=== PATIENT | female | born 1935 | race Caucasian/White ===

== ENCOUNTER 2018-02-01 13:42 | Inpatient (IN) | payer MEDICARE, OTHER ==
[~2018-02-01] VITALS: Ht 149.9 cm; Wt 56.5 kg
[~2018-02-01 13:42] MED LIST: LEVO750T26 PO; NYST1000 PO
[2018-02-01] MEDS ORDERED: SODIUM CHLORIDE 0.9% 1,000 ML IV ONE (14:04)
[2018-02-01] MEDS ORDERED: ACETAMINOPHEN 650 MG SUPP ONE (14:05)
[2018-02-01] MEDS ORDERED: SODIUM CHLORIDE 0.9% 1,000ML IVBOLUS ONE (14:30)
[2018-02-01] MEDS ORDERED: ACETAMINOPHEN 650 MG SUPP PR ONE (14:30)
[2018-02-01] MEDS ORDERED: SODIUM CHLORIDE FLUSH 10ML SYR IVF ONE (14:30)
[2018-02-01 14:35] LABS: INTERNATIONAL NORMALIZED RATIO 1.02 (0.93-1.1); PROTHROMBIN TIME 10.6 Seconds (9.6-11.5)
[2018-02-01 14:42] LABS: BASOPHILS # (AUTO) 0.02 x10^3/uL (0-0.1); BASOPHILS % (AUTO) 0 % (0-1); EOSINOPHILS # (AUTO) 0.01 x10^3/uL (0-0.4); EOSINOPHILS % (AUTO) 0 % (1-7); LYMPHOCYTES # (AUTO) 1.29 x10^3/uL (1-3.4); LYMPHOCYTES % (AUTO) 13 % (22-44); MD NO; MEAN CORPUSCULAR HEMOGLOBIN 31.8 pg (27.0-34.8); MEAN CORPUSCULAR HGB CONC 34.1 g/dL (32.4-35.8); MEAN CORPUSCULAR VOLUME 93.3 fL (80-100); MEAN PLATELET VOLUME 8.6 fL (7.4-10.4); MONOCYTES # (AUTO) 0.39 x10^3/uL (0.2-0.8); MONOCYTES % (AUTO) 4 % (2-9); NEUTROPHILS # (AUTO) 8.29 x10^3/uL (1.8-6.8); NEUTROPHILS % (AUTO) 83 % (42-75); PLATELET COUNT 219 x10^3/uL (130-400); RED BLOOD COUNT 4.31 x10^6/uL (3.82-5.3); RED CELL DISTRIBUTION WIDTH 12.9 % (9.6-15.2)
[2018-02-01 14:54] LABS: ALANINE AMINOTRANSFERASE 23 U/L (12-78); ALBUMIN 3.7 g/dL (3.4-5.0); ANION GAP 10 mmol/L (5-15); CALCIUM 8.3 mg/dL (8.5-10.1); CHLORIDE 105 mmol/L (98-107); CREATININE 1.01 mg/dL (0.55-1.02)
[2018-02-01 14:58] LABS: ALKALINE PHOSPHATASE 68 U/L (45-117); BILIRUBIN,TOTAL 0.8 mg/dL (0.2-1.0); CREATINE KINASE, TOTAL 232 U/L (26-192); TOTAL PROTEIN 7.8 g/dL (6.4-8.2); TROPONIN I < 0.015 ng/mL (0.000-0.045)
[2018-02-01] MEDS ORDERED: AZITHROMYCIN 500 MG in SODIUM CHLORIDE 0.9% 250 ML IVPB ONE (15:00)
[2018-02-01] MEDS ORDERED: CEFTRIAXONE PMX 1GM/50ML 50 ML IVPB ONE (15:00)
[2018-02-01] MEDS ORDERED: CEFTRIAXONE PMX 1GM/50ML 50 ML ONE (15:27)
[2018-02-01 15:41] LABS: MICROSCOPIC INDICATED
[2018-02-01 15:49] LABS: CULTURE INDICATED? NO
[2018-02-01] MEDS ORDERED: SODIUM CHLORIDE FLUSH 10ML SYR IVF PRN (17:00)
[2018-02-01] MEDS ORDERED: IBUPROFEN 200 MG TABLET PO PRN (18:00)
[2018-02-01] MEDS ORDERED: LABETALOL 5MG/ML, 20ML IVPush PRN (18:00)
[2018-02-01] MEDS ORDERED: POLYETHYLENE GLYCOL 17 GM PACKET PO PRN (18:00)
[2018-02-01] MEDS ORDERED: ONDANSETRON 2MG/ML, 2ML IVPush PRN (18:00)
[2018-02-01] MEDS ORDERED: CEFTRIAXONE PMX 2GM/50ML 50 ML IV SCH (18:00)
[2018-02-01] MEDS ORDERED: PROMETHAZINE 25 MG/ML, 1ML IM PRN (18:00)
[2018-02-01] MEDS ORDERED: METOCLOPRAMIDE 5 MG/ML, 2ML IVPush PRN (18:00)
[2018-02-01] MEDS ORDERED: hydrALAzine 20 MG/ML, 1ML IVPush PRN (18:00)
[2018-02-01 20:35] VITALS: BP 127/67
[2018-02-01] MEDS: ENOXAPARIN 40 MG/0.4 ML SQ SCH (21:04)
[2018-02-01] MEDS: AMPICILLIN/SULBACTAM 3 GM in SODIUM CHLORIDE 0.9% 100 ML IV SCH (21:05)
[2018-02-01] MEDS: LACTATED RINGERS 1,000 ML IV SCH (22:58)
[2018-02-01] MEDS: ACETAMINOPHEN 325 MG TABLET PO PRN (23:07)
[2018-02-02 00:50] VITALS: BP 106/62
[2018-02-02] MEDS: AMPICILLIN/SULBACTAM 3 GM in SODIUM CHLORIDE 0.9% 100 ML IV SCH ×2 (02:20→09:29)
[2018-02-02 05:28] LABS: ANION GAP 8 mmol/L (5-15); CALCIUM 7.6 mg/dL (8.5-10.1); CHLORIDE 111 mmol/L (98-107); CREATININE 0.73 mg/dL (0.55-1.02)
[2018-02-02 06:05] LABS: BASOPHILS # (AUTO) 0.04 x10^3/uL (0-0.1); BASOPHILS % (AUTO) 1 % (0-1); EOSINOPHILS # (AUTO) 0.05 x10^3/uL (0-0.4); EOSINOPHILS % (AUTO) 1 % (1-7); LYMPHOCYTES # (AUTO) 2.21 x10^3/uL (1-3.4); LYMPHOCYTES % (AUTO) 27 % (22-44); MD NO; MEAN CORPUSCULAR HEMOGLOBIN 32.6 pg (27.0-34.8); MEAN CORPUSCULAR HGB CONC 34.2 g/dL (32.4-35.8); MEAN CORPUSCULAR VOLUME 95.3 fL (80-100); MEAN PLATELET VOLUME 8.6 fL (7.4-10.4); MONOCYTES # (AUTO) 0.74 x10^3/uL (0.2-0.8); MONOCYTES % (AUTO) 9 % (2-9); NEUTROPHILS # (AUTO) 5.16 x10^3/uL (1.8-6.8); NEUTROPHILS % (AUTO) 63 % (42-75); PLATELET COUNT 174 x10^3/uL (130-400); RED BLOOD COUNT 3.76 x10^6/uL (3.82-5.3); RED CELL DISTRIBUTION WIDTH 12.8 % (9.6-15.2)
[2018-02-02 06:35] VITALS: BP 130/72
[2018-02-02] MEDS: SENNA/DOCUSATE TABLET PO SCH (09:00)
[2018-02-02] MEDS: LACTATED RINGERS 1,000 ML IV SCH ×2 (09:29→17:17)
[2018-02-02 13:20] VITALS: BP 126/70
[2018-02-02 14:22] VITALS: BP 156/79
[2018-02-02] MEDS: ACETAMINOPHEN 325 MG TABLET PO PRN (14:32)
[2018-02-02] MEDS ORDERED: PHARMACOKINETIC CONSULTATION MC ONE (15:30)
[2018-02-02] MEDS ORDERED: PHARMACOKINETIC MONITORING MC PRN (15:30)
[2018-02-02] MEDS ORDERED: VANCOMYCIN PER PHARMACY MC PRN (15:30)
[2018-02-02] MEDS: CEFTRIAXONE PMX 2GM/50ML 50 ML IV SCH (15:35)
[2018-02-02] MEDS: VANCOMYCIN PMX 1GM/200ML 200 ML IV SCH (17:17)
[2018-02-02] MEDS: ENOXAPARIN 40 MG/0.4 ML SQ SCH (17:17)
[2018-02-02 19:56] VITALS: BP 137/67
[2018-02-03 01:16] VITALS: BP 154/75
[2018-02-03] MEDS: LACTATED RINGERS 1,000 ML IV SCH ×3 (01:59→20:55)
[2018-02-03] MEDS: CEFTRIAXONE PMX 2GM/50ML 50 ML IV SCH ×2 (03:03→15:32)
[2018-02-03 06:50] VITALS: BP 147/60
[2018-02-03] MEDS: SENNA/DOCUSATE TABLET PO SCH (09:00)
[2018-02-03] MEDS ORDERED: LIDOCAINE-MPF 1%, 2ML ONE (09:20)
[2018-02-03 10:49] LABS: GLUCOSE, CSF 39 mg/dL (40-80); TOTAL PROTEIN,CSF 102 mg/dL (15-45)
[2018-02-03 13:00] VITALS: BP 168/52
[2018-02-03] MEDS: ACYCLOVIR 600 MG in SODIUM CHLORIDE 0.9% 100 ML IV SCH ×2 (14:34→20:55)
[2018-02-03] MEDS: VANCOMYCIN PMX 1GM/200ML 200 ML IV SCH (16:54)
[2018-02-03] MEDS ORDERED: OMNIPAQUE 350 MG/ML, 100ML BOTTLE ONE (18:09)
[2018-02-03 18:48] LABS: CLOSTRIDIUM DIFFICILE ANTIGEN POSITIVE; CLOSTRIDIUM DIFFICILE TOXIN NEGATIVE (Negative)
[2018-02-03 18:59] VITALS: BP 150/72
[2018-02-03] MEDS: ENOXAPARIN 40 MG/0.4 ML SQ SCH (19:10)
[2018-02-03] MEDS: METRONIDAZOLE PMX 500MG/100ML 100 ML IV SCH (19:10)
[2018-02-04 01:06] VITALS: BP 152/68
[2018-02-04] MEDS: METRONIDAZOLE PMX 500MG/100ML 100 ML IV SCH (02:24)
[2018-02-04] MEDS: CEFTRIAXONE PMX 2GM/50ML 50 ML IV SCH ×2 (03:54→17:44)
[2018-02-04] MEDS: ACYCLOVIR 600 MG in SODIUM CHLORIDE 0.9% 100 ML IV SCH ×3 (05:10→21:10)
[2018-02-04 05:39] LABS: BASOPHILS # (AUTO) 0.04 x10^3/uL (0-0.1); BASOPHILS % (AUTO) 1 % (0-1); EOSINOPHILS # (AUTO) 0.08 x10^3/uL (0-0.4); EOSINOPHILS % (AUTO) 1 % (1-7); LYMPHOCYTES # (AUTO) 1.64 x10^3/uL (1-3.4); LYMPHOCYTES % (AUTO) 29 % (22-44); MD NO; MEAN CORPUSCULAR HEMOGLOBIN 32.9 pg (27.0-34.8); MEAN CORPUSCULAR HGB CONC 34.8 g/dL (32.4-35.8); MEAN CORPUSCULAR VOLUME 94.5 fL (80-100); MEAN PLATELET VOLUME 8.7 fL (7.4-10.4); MONOCYTES # (AUTO) 0.46 x10^3/uL (0.2-0.8); MONOCYTES % (AUTO) 8 % (2-9); NEUTROPHILS # (AUTO) 3.45 x10^3/uL (1.8-6.8); NEUTROPHILS % (AUTO) 61 % (42-75); PLATELET COUNT 153 x10^3/uL (130-400); RED CELL DISTRIBUTION WIDTH 12.7 % (9.6-15.2)
[2018-02-04] MEDS: LACTATED RINGERS 1,000 ML IV SCH ×2 (07:30→19:21)
[2018-02-04 07:45] VITALS: BP 151/71
[2018-02-04] MEDS: SENNA/DOCUSATE TABLET PO SCH (08:56)
[2018-02-04 13:16] VITALS: BP 138/68
[2018-02-04] MEDS: VANCOMYCIN PMX 1GM/200ML 200 ML IV SCH (17:44)
[2018-02-04] MEDS: ENOXAPARIN 40 MG/0.4 ML SQ SCH (17:45)
[2018-02-04 19:06] VITALS: BP 116/67
[2018-02-05 00:32] VITALS: BP 129/71
[2018-02-05] MEDS: LACTATED RINGERS 1,000 ML IV SCH ×3 (04:20→20:00)
[2018-02-05] MEDS: CEFTRIAXONE PMX 2GM/50ML 50 ML IV SCH (04:20)
[2018-02-05] MEDS: ACYCLOVIR 600 MG in SODIUM CHLORIDE 0.9% 100 ML IV SCH (05:06)
[2018-02-05 07:09] VITALS: BP 148/72
[2018-02-05] MEDS: SENNA/DOCUSATE TABLET PO SCH (09:31)
[2018-02-05 13:16] VITALS: BP 128/79
[2018-02-05] MEDS: ENOXAPARIN 40 MG/0.4 ML SQ SCH (17:48)
[2018-02-05 19:02] VITALS: BP 153/77
[2018-02-06 00:49] VITALS: BP 154/77
[2018-02-06] MEDS: LACTATED RINGERS 1,000 ML IV SCH (04:00)
[2018-02-06 07:10] VITALS: BP 136/70
[2018-02-06] MEDS: SENNA/DOCUSATE TABLET PO SCH (08:30)
== END 2018-02-06 11:45 | disposition home or self-care (01) | DRG 871 ==
LOC: ED 15:30 → EDIP 16:51 → 3NE 19:54
PROVIDERS: ADMIT Hospitalist; ATTEND Hospitalist
PROC: 0T9B70Z Drainage of Bladder with Drainage Device, Via Natural or Artificial Opening (ICD-10-PCS; 2018-02-01)
PROC: 009U3ZX Drainage of Spinal Canal, Percutaneous Approach, Diagnostic (ICD-10-PCS; principal; 2018-02-03)
DX: A41.9 Sepsis, unspecified organism (principal); G93.41 Metabolic encephalopathy; A04.72 Enterocolitis due to Clostridium difficile, not specified as recurrent; J15.9 Unspecified bacterial pneumonia; G03.9 Meningitis, unspecified; G45.9 Transient cerebral ischemic attack, unspecified; A87.9 Viral meningitis, unspecified; Z66 Do not resuscitate; T62.91XA Toxic effect of unspecified noxious substance eaten as food, accidental (unintentional), initial encounter; Z90.710 Acquired absence of both cervix and uterus; Z87.440 Personal history of urinary (tract) infections; Y92.89 Other specified places as the place of occurrence of the external cause; Z71.89 Other specified counseling
CPT/HCPCS: 36415; 62270; 70450; 70551; 71045; 71250; 74177; 80048; 80053; 81001; 82140; 82550; 82945; 83605; 83735; 84145; 84157; 84484; 85025; 85610; 85651; 85730; 86140; 86592; 86788; 86789; 87040; 87070; 87205; 87252; 87324; 87493; 87498; 87529; 87798; 89051; 93005; 96361; 96365; J0133; J0295; J0456; J0696; J1650; J3370; J3490; Q9967; J7030; J7050; J7120